=== PATIENT | male | born 1975 | race Caucasian/White ===

== ENCOUNTER 2019-05-10 18:17 | Emergency (ER) | payer OTHER ==
[2019-05-10 18:49] VITALS: RESP 18
[2019-05-10] MEDS ORDERED: LIDOCAINE 1% INJ 10MG/ML (20 ML MDV) SQ STA (19:08)
[2019-05-10] MEDS ORDERED: WATER FOR IRRIG, STERILE 1,000 ML BTL IRRIGATION ONE (19:08)
--- NOTE | 2019-05-10 19:18 | ED ---
General Adult HPI - General Chief complaint: Wound/Laceration Stated complaint: Wrist Lac Time Seen by Provider: 05/10/19 18:59 Source: patient, RN notes reviewed, old records reviewed Mode of arrival: ambulatory Limitations: no limitations - History of Present Illness Initial comments: 44-year-old male patient with no pertinent past medical history, fully vaccinated presents to the chief complaint of laceration to left lateral volar wrist region. Patient was cutting a piece of leather with a razor and states that it slipped. Patient denies this was intentional. Patient states the tetanus was updated approximately 90 days ago. Has full range of motion of hand. Denies any paresthesias. Denies other complaints. Systemic: Pt denies fatigue, fever/chills, rash. Pt denies weakness, night sweats, weight loss. Neuro: Pt denies headache, visual disturbances, syncope or pre-syncope. HEENT: Pt denies ocular discharge or irritation, otalgia, rhinorrhea, pharyngitis or notable lymphadenopathy. Cardiopulmonary: Pt denies chest pain, SOB, heart palpitations, dyspnea on exertion. Abdominal/GI: Pt denies abdominal pain, n/v/d. : Pt denies dysuria, burning w/ urination, frequency/urgency. Denies new onset urinary or bowel incontinence. MSK: Pt denies myalgia, loss of strength or function in extremities. Neuro: Pt denies new onset weakness, paresthesias. - Related Data Previous Rx's Medication Instructions Recorded Cephalexin [Keflex] 500 mg PO Q6HR 3 Days #12 cap 05/10/19 Allergies Allergy/AdvReac Type Severity Reaction Status Date / Time No Known Allergies Allergy Verified 05/10/19 18:49 Review of Systems ROS Statement: Those systems with pertinent positive or pertinent negative responses have been documented in the HPI. ROS Other: All systems not noted in ROS Statement are negative. Past Medical History Past Medical History: No Reported History History of Any Multi-Drug Resistant Organisms: None Reported Past Surgical History: No Surgical Hx Reported Past Psychological History: No Psychological Hx Reported Smoking Status: Never smoker Past Alcohol Use History: None Reported Past Drug Use History: None Reported General Exam - General Exam Comments Initial Comments: Constitutional: NAD, AOX3, Pt has pleasant affect. HEENT: NC/AT, trachea midline, neck supple, no lymphadenopathy. Posterior ph arynx non erythematous, without exudates. External ears appear normal, without discharge. Mucous membranes moist. Eyes PERRLA, EOM intact. There is no scleral icterus. No pallor noted. Cardiopulmonary: RRR, no murmurs, rubs or gallops, no JVD noted. Lungs CTAB in anterior and posterior rivas. No peripheral edema. Abdominal exam: Abdomen soft and non-distended. Abdomen non-tender to palpation in all 4 quadrants. Bowel sounds active in LLQ. No hepatosplenomegaly. No ecchymosis Neuro: CN II-XII grossly intact. No nuchal rigidity. No raccon eyes, no zabala sign, no hemotympanum. No cervical spinal tenderness. MSK: No posterior calf tenderness bilaterally, homans sign negative bilaterally. Posterior tibialis and radial pulse +2 bilaterally. Sensation intact in upper and lower extremities. Full active ROM in upper and lower extremities, 5/5 stregnth. 3 cm laceration noted to the volar left forearm region. No neurovascular ligamentous or tendinous involvement of laceration. When Wound was explored tendon sheath is visible but not damaged. Vigorously irrigated with 2 L normal saline. Approximated with 5 simple interrupted sutures. Full active range of motion of hand and wrist, all digits. Sensation intact. Cap refill less than 2 seconds. Limitations: no limitations Course Vital Signs 05/10/19 18:47 Temperature 98.2 F Pulse Rate 72 Respiratory 18 Rate Blood Pressure 128/85 O2 Sat by Pulse 99 Oximetry Procedures - Laceration Laceration #1 Consent Obtained: verbal consent Indication: laceration Site: other (L volar wrist ) Size (cm): 3 Description: linear Depth: simple, single layer Anesthetic Used: lidocaine 1% Anesthesia Technique: local infiltration Amount (mls): 4 Pre-repair: wound explored, irrigated extensively (2L NS ), deep structures intact Type of Sutures: nylon Size of Sutures: 5-0 Number of Sutures: 5 Technique: simple, interrupted Patient Tolerated Procedure: well, no complications Medical Decision Making - Medical Decision Making 44-year-old male patient presents to ED for laceration. Patient also in stable, afebrile. Tetanus up-to-date. Physical exam revealed a 3 cm laceration, approximated with 5 simple interrupted sutures. Anc was recommended the patient who declined. Patient will be discharged with prophylactic oral antibiotics. Will follow up with primary care provider. Return precautions discussed. Patient provided orthopedic follow-up in case of any complications. Will return to ER if condition worsens. Case discussed with Dr. Morgan. Disposition Clinical Impression: Laceration Disposition: HOME SELF-CARE Condition: Stable Instructions (If sedation given, give patient instructions): Laceration (ED) Additional Instructions: Patient to adhere to previously discussed treatment plan and will take medication(s) as directed. Patient to follow up with PCP in 1-2 days. Patient to return to ED if symptoms do not improve. Please return for suture removal: Hand: 7-10 days Face: 5 days Chest/abdomen: 12-14 days Extremities: 7-10 days Scalp: 7 days Eyebrow: 5-7 days Foot/sole: 12-14 days Please monitor for signs and symptoms of infection including: redness, warmth, drainage, discharge. Please return to ED if these signs or symptoms occur, new signs or symptoms develop or if condition worsens in anyway. Prescriptions: Cephalexin [Keflex] 500 mg PO Q6HR 3 Days #12 cap Is patient prescribed a controlled substance at d/c from ED?: No Referrals: None,Stated [Primary Care Provider] - 1-2 days [facility] [NON[facility]FF] - 1-2 days Manjinder Plummer DO [Medical Doctor] - 1-2 days
[2019-05-10] MEDS: ceFAZolin 1,000 MG VIAL (IM USE) IM STA ×2 (19:29→19:31)
[2019-05-10] MEDS ORDERED: CEPHALEXIN 500 MG CAP PO STA (19:58)
[2019-05-10] MEDS ORDERED: CEPHALEXIN 500MG STARTER PACK 4 CAP BTL PO STA (19:58)
[2019-05-10 20:34] VITALS: BP 125/85; PULSE 87; TEMP 98.5
== END 2019-05-10 20:40 | disposition home or self-care (01) ==
LOC: EC 18:17
DX: S61.512A Laceration without foreign body of left wrist, initial encounter (principal); W26.0XXA Contact with knife, initial encounter; Y93.89 Activity, other specified; Y92.009 Unspecified place in unspecified non-institutional (private) residence as the place of occurrence of the external cause
CPT/HCPCS: 99283; 12002; J2001